=== PATIENT | male | born 1975 | race American Indian/Alaskan Native ===

== ENCOUNTER 2022-02-26 12:02 | Emergency (ER) | payer OTHER ==
[2022-02-26 12:33] VITALS: BP 132/79
[2022-02-26 13:29] LABS: Bilirubin,Urine NEG (Negative); Blood,Urine NEG (Negative); Color,Urine Yellow (Yellow); Protein,Urine <15 mg/dL mg/dL (Negative); Urobilinogen,Urine < 2.0 mg/dL (<2.0)
[2022-02-26 13:30] LABS: WBC,Urine < 1.0 /HPF (0.0-6.0)
[2022-02-26 14:06] LABS: Basophils # (Auto) 0.1 K/mm3 (0.0-0.1); Basophils % (Auto) 1.4 % (0.0-1.8); Eosinophils # (Auto) 0.2 K/mm3 (0.0-0.4); Eosinophils % (Auto) 2.5 % (0.0-4.3); Hemoglobin 12.4 gm/dl (11.8-15.2); Lymphocytes # (Auto) 1.7 K/mm3 (1.2-5.4); Lymphocytes % (Auto) 26.7 % (13.4-35.0); Mean Corpuscular HGB Conc 32 % (32-34); Mean Corpuscular Volume 76 fl (84-94); Monocytes # (Auto) 0.7 K/mm3 (0.0-0.8); Monocytes % (Auto) 10.8 % (0.0-7.3); Platelet Count 270 K/mm3 (140-440); Red Blood Count 5.11 M/mm3 (3.65-5.03); Red Cell Distribution Width 14.8 % (13.2-15.2)
[2022-02-26 14:22] LABS: Alanine Aminotransferase 20 units/L (7-56); Albumin 4.3 g/dL (3.9-5); BUN/Creatinine Ratio 15; Blood Urea Nitrogen 16 mg/dL (9-20); Calcium 9.4 mg/dL (8.4-10.2); Hemolysis Index 4
[2022-02-26 14:25] LABS: Bilirubin,Direct < 0.2 mg/dL (0-0.2)
--- NOTE | 2022-02-26 15:51 | Emergency Department Report ---
ED General Adult HPI - General Chief complaint: Abdominal Pain Stated complaint: ABDOMINAL/THROAT/LOW BACK PAIN PUI?: No Time Seen by Provider: 02/26/22 15:41 Source: patient Mode of arrival: Ambulatory Limitations: No Limitations - History of Present Illness Initial comments: Mr. Alicea is a pleasant 46-year-old male that comes to the emergency room several days after eating a crystals. At that time he developed nausea vomiting diarrhea. He has subsequently gotten over that. However, now his throat is hurting. Patient has had no nausea vomiting or diarrhea since yesterday. He is ambulatory, not ill nontoxic and taking p.o. He has no fever or chills. He has not sought medical attention until today. Patient is on lisinopril for blood pressure Although he told the triage nurse that he is here for his GI symptoms he tells me he is here for sore throat. -: Gradual, days(s) Improves with: none Worsens with: none Associated Symptoms: denies other symptoms Treatments Prior to Arrival: none - Related Data Previous Rx's Medication Instructions Recorded Last Taken Type Amoxicillin [Trimox CAP] 500 mg PO BID #20 capsule 02/26/22 Unknown Rx Allergies Allergy/AdvReac Type Severity Reaction Status Date / Time No Known Allergies Allergy Verified 02/26/22 12:33 ED Review of Systems ROS: Stated complaint: ABDOMINAL/THROAT/LOW BACK PAIN Other details as noted in HPI Comment: All other systems reviewed and negative ED Past Medical Hx - Past Medical History Previous Medical History?: Yes Hx Hypertension: Yes - Surgical History Past Surgical History?: Yes Additional Surgical History: left shoulder rotator cuff repair - Family History Family history: no significant - Social History Smoking Status: Never Smoker Substance Use Type: Alcohol - Medications Home Medications: Home Medications Medication Instructions Recorded Confirmed Last Taken Type Amoxicillin [Trimox CAP] 500 mg PO BID #20 capsule 02/26/22 Unknown Rx ED Physical Exam - General Limitations: No Limitations General appearance: alert, in no apparent distress - Head Head exam: Present: atraumatic, normocephalic - Eye Eye exam: Present: normal appearance - ENT ENT exam: Present: mucous membranes moist, other (uvula boggy) - Neck Neck exam: Present: normal inspection - Respiratory Respiratory exam: Present: normal lung sounds bilaterally. Absent: respiratory distress - Cardiovascular Cardiovascular Exam: Present: regular rate, normal rhythm. Absent: systolic murmur, diastolic murmur, rubs, gallop - GI/Abdominal GI/Abdominal exam: Present: soft, normal bowel sounds - Rectal Rectal exam: Present: deferred - Extremities Exam Extremities exam: Present: normal inspection - Back Exam Back exam: Present: normal inspection - Neurological Exam Neurological exam: Present: alert, oriented X3 - Psychiatric Psychiatric exam: Present: normal affect, normal mood - Skin Skin exam: Present: warm, dry, intact, normal color. Absent: rash ED Course Vital Signs 02/26/22 12:29 Temperature 98.7 F Pulse Rate 70 Respiratory 18 Rate Blood Pressure 132/79 O2 Sat by Pulse 100 Oximetry ED Medical Decision Making - Lab Data Result diagrams: 02/26/22 12:49 02/26/22 12:49 - Medical Decision Making Labs 02/26/22 02/26/22 02/26/22 12:49 12:49 12:50 WBC 6.5 RBC 5.11 H Hgb 12.4 Hct 39.0 MCV 76 L MCH 24 L MCHC 32 RDW 14.8 Plt Count 270 Lymph % (Auto) 26.7 Blair % (Auto) 10.8 H Eos % (Auto) 2.5 Baso % (Auto) 1.4 Lymph # (Auto) 1.7 Blair # (Auto) 0.7 Eos # (Auto) 0.2 Baso # (Auto) 0.1 Seg Neutrophils % 58.6 Seg Neutrophils # 3.8 Sodium 139 Potassium 5.0 Chloride 103.7 Carbon Dioxide 25 Anion Gap 15 BUN 16 Creatinine 1.1 Estimated GFR > 60 BUN/Creatinine Ratio 15 Glucose 83 Calcium 9.4 Total Bilirubin 0.30 Direct Bilirubin < 0.2 Indirect Bilirubin 0.1 AST 20 ALT 20 Alkaline Phosphatase 82 Total Protein 7.1 Albumin 4.3 Albumin/Globulin Ratio 1.5 Lipase 32 Urine Color Yellow Urine Turbidity Clear Urine pH 5.0 Ur Specific [place] 1.017 Urine Protein <15 mg/dl Urine Glucose (UA) Neg Urine Ketones Neg Urine Blood Neg Urine Nitrite Neg Urine Bilirubin Neg Urine Urobilinogen < 2.0 Ur Leukocyte Esterase Neg Urine WBC (Auto) < 1.0 Urine RBC (Auto) 1.0 Vital Signs 02/26/22 12:29 Temperature 98.7 F Pulse Rate 70 Respiratory 18 Rate Blood Pressure 132/79 O2 Sat by Pulse 100 Oximetry Labs noted to be normal. UA normal. Vital signs normal. Uvula boggy and swollen with no exudates. Patient taking p.o. He is controlling secretions. No abscess. Patient being discharged home with discharge plan of care including diet, activity, medications and follow-up. He verbalizes understanding of care - Differential Diagnosis uri/gastroenteritis Critical care attestation.: If time is entered above; I have spent that time in minutes in the direct care of this critically ill patient, excluding procedure time. ED Disposition Clinical Impression: Gastroenteritis, Uvulitis Disposition: HOME / SELF CARE / HOMELESS Is pt being admited?: No Does the pt Need Aspirin: No Condition: Stable Instructions: Uvulitis Additional Instructions: Motrin or Tylenol for pain. Antibiotic until gone. Follow-up with your PCP after you complete the antibiotic Advance your diet slowly. Bananas rice applesauce and toast to begin with [id number] Lomotil if you should get diarrhea Prescriptions: Amoxicillin [Trimox CAP] 500 mg PO BID #20 capsule Referrals: ANA MAYS MD [Staff Physician] - 3-5 Days Forms: Work/School Release Form(ED) Time of Disposition: 15:50
== END 2022-02-26 16:05 | disposition home or self-care (01) ==
LOC: ED 12:02
DX: K52.9 Noninfective gastroenteritis and colitis, unspecified (principal); K12.2 Cellulitis and abscess of mouth
CPT/HCPCS: 36415; 80048; 80076; 81001; 83690; 85025; 99283